=== PATIENT | female | born 2000 | race Caucasian/White ===

== ENCOUNTER 2021-12-31 19:41 | Emergency (ER) | payer OTHER ==
[~2021-12-31] VITALS: Ht 165.1 cm; Wt 84.1 kg
[2021-12-31] MEDS ORDERED: IBUPROFEN 600MG TAB PO ONE (20:35)
[2021-12-31] MEDS ORDERED: CEPHALEXIN 500 MG CAP PO ONE (20:35)
[2021-12-31 20:50] LABS: BASO % 0.4 % (0.0-1.0); EOS # 0.2 10^3/uL (0.0-0.5); EOS % 1.9 % (0.0-3.0); HEMATOCRIT 37.2 % (36.0-47.0); HEMOGLOBIN 12.8 g/dl (12.0-15.5); LYMPH # 1.9 10^3/uL (1.5-5.0); LYMPH % 17.9 % (24.0-44.0); MEAN CORPUSCULAR HEMOGLOBIN 29.3 pg (27.0-33.0); MEAN CORPUSCULAR HGB CONC 34.4 g/dl (32.0-36.5); MEAN CORPUSCULAR VOLUME 85.1 fl (80.0-96.0); MONO # 1.1 10^3/uL (0.0-0.8); MONO % 10.4 % (2.0-8.0); NEUTROPHILS # 7.4 10^3/uL (1.5-8.5); NEUTROPHILS % 68.9 % (36.0-66.0); PLATELET COUNT, AUTOMATED 278 10^3/uL (150-450); RED BLOOD COUNT 4.37 10^6/uL (4.00-5.40); WHITE BLOOD COUNT 10.7 10^3/uL (4.0-10.0)
[2021-12-31 21:17] LABS: BLOOD UREA NITROGEN 11 MG/DL (7-18); CALCIUM LEVEL 8.5 MG/DL (8.5-10.1); CARBON DIOXIDE LEVEL 26 MEQ/L (21-32); CHLORIDE LEVEL 109 MEQ/L (98-107); CREATININE FOR GFR 0.72 MG/DL (0.55-1.30); GLOMERULAR FILTRATION RATE > 60.0 (>60); GLUCOSE, FASTING 104 MG/DL (70-100); POTASSIUM SERUM 3.8 MEQ/L (3.5-5.1); SODIUM LEVEL 140 MEQ/L (136-145)
[2021-12-31] MEDS ORDERED: CEPH500C PO (21:42)
[2021-12-31 21:49] VITALS: BP 118/76
== END 2021-12-31 21:52 | disposition home or self-care (01) ==
LOC: M ED 19:41
DX: N61.1 Abscess of the breast and nipple (principal); R50.9 Fever, unspecified

== ENCOUNTER 2022-08-31 12:10 | Outpatient (CLI) | payer OTHER ==
[~2022-08-31] VITALS: Ht 165.1 cm; Wt 101.5 kg
[~2022-08-31 12:10] MED LIST: CEPH500C PO
[2022-08-31 12:25] VITALS: BP 124/60
[2022-08-31] MEDS ORDERED: PRENTAB9 PO (12:32)
[2022-08-31] MEDS ORDERED: HOME MED LIST COMPLETE! XX SCH (12:50)
== END 2022-08-31 13:53 | disposition home or self-care (01) ==
LOC: M LDO 12:10
PROVIDERS: ATTEND Advanced Practice Midwife
DX: O36.8130 Decreased fetal movements, third trimester, not applicable or unspecified (principal); Z3A.32 32 weeks gestation of pregnancy
CPT/HCPCS: 59025; G0463

== ENCOUNTER 2022-10-27 10:41 | Inpatient (IN) | payer OTHER ==
[~2022-10-27] VITALS: Ht 165.1 cm; Wt 102.8 kg
[2022-10-27] VITALS (27 sets, daily range): BP systolic 111–148; BP diastolic 51–88
[~2022-10-27 10:41] MED LIST changes: +**PENDING PCN ENTRY XX SCH; +PRENTAB9 PO
[2022-10-27] MEDS ORDERED: HOME MED LIST COMPLETE! XX SCH (11:15)
[2022-10-27] MEDS ORDERED: LACTATED RINGER'S 1000 ML IV STA (11:44)
[2022-10-27] MEDS ORDERED: LR 1,000 ML IV SCH ×2 (11:45→20:00)
[2022-10-27] MEDS ORDERED: METHYLERGONOVINE MALEATE 0.2 MG/ML VIAL (J2210) IM PRN (11:45)
[2022-10-27] MEDS ORDERED: CARBOPROST TROMETHAMINE 250 MCG/ML AMP IM PRN (11:45)
[2022-10-27] MEDS ORDERED: TRANEXAMIC ACID INJection 1,000 MG in NS 100 ML IV PRN (11:45)
[2022-10-27] MEDS ORDERED: LIDOCAINE 1% MDV 20ML VIAL INFIL PRN (11:45)
[2022-10-27] MEDS ORDERED: OXYTOCIN DRIP 30 UNITS in IV 1 EA IV PRN ×4 (11:45)
[2022-10-27 12:34] LABS: HEMOGLOBIN 10.2 g/dl (12.0-15.5); MEAN CORPUSCULAR HEMOGLOBIN 28.4 pg (27.0-33.0); MEAN CORPUSCULAR HGB CONC 31.9 g/dl (32.0-36.5); MEAN CORPUSCULAR VOLUME 89.1 fl (80.0-96.0); PLATELET COUNT, AUTOMATED 236 10^3/uL (150-450); RED BLOOD COUNT 3.59 10^6/uL (4.00-5.40); WHITE BLOOD COUNT 9.4 10^3/uL (4.0-10.0)
[2022-10-27 12:55] LABS: URIC ACID 5.4 MG/DL (3.1-7.8)
[2022-10-27 12:57] LABS: LDH LACTATE DEHYDROGENASE 194 U/L (120-246)
[2022-10-27 12:58] LABS: ALT/SGPT < 9 U/L (7.0-40); AST/SGOT 15 U/L (<34); BILIRUBIN,TOTAL 0.3 MG/DL (0.3-1.2); CREATININE FOR GFR 0.55 MG/DL (0.55-1.30); GLOMERULAR FILTRATION RATE > 60.0 (>60)
[2022-10-27] MEDS ORDERED: miSOPROStol 50MCG 1/2 TABLET SL ONE (13:00)
[2022-10-27 13:03] LABS: TOTAL PROTEIN,RANDOM URINE 20.4 MG/DL (0.0-14.0)
[2022-10-27] MEDS ORDERED: PENICILLIN G POTASSIUM 5 MU IV 5 MU in D5W MINI-BAG PLUS 100 ML IV STA ×2 (13:04→15:31)
[2022-10-27 13:09] LABS: CREATININE,RANDOM URINE 192.6 MG/DL
[2022-10-27] MEDS ORDERED: PEN G POT 3,000,000 UNIT/50 ML 3,000,000 UNIT in IV 1 EA IV SCH ×2 (17:05→20:00)
[2022-10-27] MEDS ORDERED: ePHEDrine SULFATE 25 MG/5 ML(5MG/ML) SYRINGE IVP PRN (17:55)
[2022-10-27] MEDS ORDERED: EPIDURAL/PCA KEYS XX PRN (17:55)
[2022-10-27] MEDS ORDERED: NALOXONE INJ 0.4MG/1ML VIAL IV PRN (17:55)
[2022-10-27] MEDS ORDERED: FENTANYL/ROPIVACAINE/NACL BAG 100 ML EPIDURAL SCH (17:55)
[2022-10-27] MEDS ORDERED: LR 500 ML IV PRN (17:55)
[2022-10-27] MEDS ORDERED: ONDANSETRON 4MG 2ML VIAL IV PRN ×2 (17:55→20:00)
[2022-10-27] MEDS ORDERED: diphenhydrAMINE 50MG/ML VIAL IV PRN (17:55)
[2022-10-27 19:49] LABS: CORD GAS ABE A -8.4; CORD GAS HCO3 A 21.7 MEQ/L; CORD GAS O2 SAT A 54.1 %; CORD GAS PCO2 A 63.6 mmHg; CORD GAS PH A 7.151 UNITS; CORD GAS PO2 A 27.2 mmHg; CORD GAS SBC A 16.9 MEQ/L; CORD GAS TCO2 A 23.7 MEQ/L
[2022-10-27 19:52] LABS: CORD GAS ABE V -5.9; CORD GAS HCO3 V 19.6 MEQ/L; CORD GAS O2 SAT V 76.2 %; CORD GAS PCO2 V 38.6 mmHg; CORD GAS PH V 7.323 UNITS; CORD GAS PO2 V 33.9 mmHg; CORD GAS SBC V 19.2 MEQ/L; CORD GAS TCO2 V 20.8 MEQ/L
[2022-10-27] MEDS ORDERED: METHYLERGONOVINE MALEATE 0.2 MG TAB PO PRN (20:00)
[2022-10-27] MEDS ORDERED: DOCUSATE SODIUM 100MG CAPSULE PO PRN (20:00)
[2022-10-27] MEDS ORDERED: OXYTOCIN DRIP 30 UNITS in IV 1 EA IV SCH (20:00)
[2022-10-27] MEDS ORDERED: METOCLOPRAMIDE INJ 10MG/2ML VIAL IV PRN (20:00)
[2022-10-27] MEDS ORDERED: DIBUCAINE 1% OINTMENT 30GM TOP PRN (20:00)
[2022-10-27] MEDS ORDERED: RHOGAM 300MCG (1500IU) INJ IM SCH (20:00)
[2022-10-27] MEDS: ACETAMINOPHEN 500 MG TAB PO SCH (20:37)
[2022-10-27] MEDS: IBUPROFEN 800 MG TAB PO SCH (22:23)
[2022-10-28] MEDS: ACETAMINOPHEN 500 MG TAB PO SCH ×4 (01:00→20:00)
[2022-10-28] MEDS: IBUPROFEN 800 MG TAB PO SCH ×3 (05:53→22:00)
[2022-10-28 06:00] VITALS: BP 99/54
[2022-10-28 06:49] LABS: HEMATOCRIT 26.4 % (36.0-47.0); HEMOGLOBIN 8.6 g/dl (12.0-15.5); MEAN CORPUSCULAR HEMOGLOBIN 28.9 pg (27.0-33.0); MEAN CORPUSCULAR HGB CONC 32.6 g/dl (32.0-36.5); MEAN CORPUSCULAR VOLUME 88.6 fl (80.0-96.0); PLATELET COUNT, AUTOMATED 209 10^3/uL (150-450); RED BLOOD COUNT 2.98 10^6/uL (4.00-5.40); WHITE BLOOD COUNT 10.5 10^3/uL (4.0-10.0)
[2022-10-28] MEDS: PRENATAL VITAMINS CHEWABLE TABLET PO SCH (08:53)
[2022-10-28] MEDS ORDERED: PRENATAL VITAMINS CHEWABLE TABLET PO SCH (09:00)
[2022-10-28 18:00] VITALS: BP 108/62
[2022-10-29] MEDS: ACETAMINOPHEN 500 MG TAB PO SCH ×2 (02:00→07:41)
[2022-10-29 06:00] VITALS: BP 105/59
[2022-10-29] MEDS: IBUPROFEN 800 MG TAB PO SCH ×2 (07:40→09:37)
[2022-10-29] MEDS ORDERED: MEASLES,MUMPS,RUBELLA VACCINE INJ (MMR-II) SC.IMMUN ONE (09:00)
[2022-10-29] MEDS: PRENATAL VITAMINS CHEWABLE TABLET PO SCH (09:35)
== END 2022-10-29 10:10 | disposition home or self-care (01) | DRG 807 ==
LOC: M LDI 10:41 → M OBS 21:48
PROVIDERS: ADMIT Advanced Practice Midwife; ATTEND Obstetrics & Gynecology
PROC: 10E0XZZ Delivery of Products of Conception, External Approach (ICD-10-PCS; principal; 2022-10-27)
PROC: 3E0P7GC Introduction of Other Therapeutic Substance into Female Reproductive, Via Natural or Artificial Opening (ICD-10-PCS; 2022-10-27)
DX: O48.0 Post-term pregnancy (principal); Z37.0 Single live birth; Z3A.41 41 weeks gestation of pregnancy; O99.344 Other mental disorders complicating childbirth; F41.9 Anxiety disorder, unspecified; O99.214 Obesity complicating childbirth; E66.9 Obesity, unspecified; O99.824 Streptococcus B carrier state complicating childbirth; O69.81X0 Labor and delivery complicated by cord around neck, without compression, not applicable or unspecified